=== PATIENT | female | born 2000 | race Caucasian/White ===

== ENCOUNTER 2019-01-25 12:31 | Inpatient (IN) ==
[2019-01-25 14:19] LABS: Bilirubin,Urine Negative (Negative); Blood,Urine Negative (Negative); Clarity,Urine Cloudy (Clear); Color,Urine Yellow (Yellow); Glucose,Urine (UA) Normal (Normal); Ketones,Urine Negative (Negative); Leukocyte Esterase,Urine Large (Negative); Nitrite,Urine Negative (Negative); PH,Urine 5.5 pH Units (5.0-8.0); Protein,Urine Negative (Neg-Trace); Specific Gravity,Urine 1.026 (1.010-1.025); Urobilinogen,Urine Normal (Normal)
[2019-01-25 14:21] LABS: Bacteria,Urine Moderate per hpf (None-Few); Hyaline Casts,Urine None Seen per lpf (None-Few); Squamous Epithelial Cell,Urine Many per lpf (None-Few); WBC,Urine 50-100 per hpf (0-3)
[2019-01-25 14:32] LABS: Basophils % 0.4 %; Eosinophils # 0.2 K/mcL (0.0-0.6); Eosinophils % 2.3 %; Hematocrit 36.4 % (35.3-44.9); Hemoglobin 11.4 g/dL (11.5-15.4); Immature Granulocytes % 0.4 % (0-4); Lymphocytes # 3.9 K/mcL (0.6-4.6); Lymphocytes % 38.8 %; Mean Corpuscular HGB Conc 31.3 g/dL (31.6-35.5); Mean Corpuscular Hemoglobin 24.4 pg (28.0-33.3); Mean Corpuscular Volume 77.9 fL (83.0-100.0); Mean Platelet Volume 9.7 fL (9.4-12.4); Monocytes # 0.6 K/mcL (0.0-1.3); Monocytes % 6.1 %; Neutrophils # 5.3 K/mcL (1.6-8.9); Platelet Count 433 K/mcL (140-400); Red Blood Count 4.67 M/mcL (3.82-4.97); Red Cell Distribution Width 15.5 % (11.5-14.5); White Blood Count 10.1 K/mcL (4.3-11.1)
[2019-01-25 14:49] LABS: Acetaminophen < 10 mcg/mL (10-20); BUN/Creatinine Ratio 10 (6-26); Blood Urea Nitrogen 7 mg/dL (6-20); Calcium 9.1 mg/dL (8.6-10.3); Carbon Dioxide 24 mEq/L (23-29); Chloride 106 mEq/L (98-107); Ethanol < 10 mg/dL (Less than 10); Glucose 80 mg/dL (70-105); Osmolality,Calculated 281 (280-300); Potassium 3.8 mEq/L (3.5-5.1); Salicylate < 2.5 mg/dL (15.0-30.0); Sodium 137 mEq/L (136-145); eGFR For African Americans > 60 (> 60); eGFR For Non-African Americans > 60 (> 60)
[2019-01-25 14:49] LABS: Amphetamine Screen,Urine Negative ng/mL (Cutoff=1000); Barbiturate Screen,Urine Negative ng/mL (Cutoff=200); Benzodiazepines Screen,Urine Negative ng/mL (Cutoff=200); Cannabinoid Screen,Urine Positive ng/mL (Cutoff = 50); Cocaine Screen,Urine Negative ng/mL (Cutoff= 300); Opiate Screen,Urine Negative ng/mL (Cutoff=300); Phencyclidine Screen,Urine Negative ng/mL (Cutoff=25)
--- NOTE | 2019-01-25 16:10 | Emergency Department Note ---
Disposition Clinical Impression: Suicidal ideation Disposition: Admitted As Inpatient Condition: Good Instructions: Depression (ED) Referrals: NONE,PCP [Primary Care Provider] - Forms: ED Satisfaction Letter Time of Disposition: 17:44 General Adult HPI - General Chief complaint: ED Psychiatric Symptoms Stated complaint: SI Time Seen by Provider: 01/25/19 14:02 Source: patient, family Limitations: no limitations - History of Present Illness HPI Narrative: HPI Chief Complaint depression Patient Stated Complaint Patient is a 18-year-old female who comes in with depression and thoughts of hurting self with a history of self-harm contemplating taking pills to hurt self patient is having suicidal thoughts denies any homicidal thoughts or ideation denies any hallucinations of any type and denies any systemic complaints chest pain shortness of breath fevers or chills patient states not taking any meds or alcohol or illegal substances all other symptoms reviewed and are negative Allergy List : Reviewed-and agree with nurses notes Home Medication List : Reviewed-and agree with nurses notes Medical and Surgical History Active Problem List: Reviewed-and agree with nurses notes Family History Reviewed- see -nurses notes Vital Signs and Body Measurements Reviewed- see -nurses notes ROS At Least 10 Organ Systems Reviewed and Negative Except as Indicated in HPI Physical Examination: All findings normal unless otherwise noted Constitutional Alert & orientated x 3, No Acute Distress Well Nourished Head and Face :Normocephalic and Atraumatic Eye Extraocular Movement Intact Pupils Equally Round Reactive to light Ear Nose Throat Mucous Membranes Moist No Injury or Deformity Oropharynx Clear Cardiovascular Capillary Refill Less than 2 Seconds No Peripheral Edema Normal S1, S2 Pulses Normal Regular Rate and Rhythm Respiratory Clear to Auscultation Bilaterally Normal Rate and Effort no Respiratory Distress or Stridor Gastrointestinal Abdomen Soft Bowel Sounds Present Not Tender Distended Generalized Tenderness. No Guarding Rebound Rigid Genitourinary No Lesion Normal External Genitalia Musculoskeletal Distal Pulses Normal No Injury or Deformity No Calf Tendernes, no Paraspinous Tenderness or spinal ttp Cervical Lumbar Thoracic Neurologic 5/5 Strength throughout No Focal Deficits Sensation Intact or Slurred Speech Skin Dry No Lesion No Rash Normal Color Warm no Cyanosis Diaphoretic Lymph No Lymphadenopathy or Lymphadenopathy Lymphedema Psychiatric Appropriate Affect Cooperative not Depressed Manic or having Suicidal Thoughts Laboratory Results-reviewed see results Data Reviewed Medical Decision Making and Diagnosis Medical Decision Making Agency and evaluated labs were reviewed patient had a question distress answered family at bedside psych evaluate for further evaluation and management and disposition after evaluation patient is being admitted for suicidal ideation the psych service Danny Carrasquillo Differential Diagnosis Considered Final Diagnostic Impression #1 depression NOS #2 suicidal ideation Disposition Admit Billing Evaluation and Management Total Critical Care Time minutes Pain Scale: 0 - Related Data Home Medications Medication Instructions Recorded Confirmed No Known Home Drugs 01/25/19 01/25/19 Allergies Allergy/AdvReac Type Severity Reaction Status Date / Time No Known Allergies Allergy Verified 01/25/19 12:33 Past Medical History - Past Medical History Medical history: Reports: non-contributory Surgical history: Reports: other Psychiatric history: Reports: depression D[employer] history: Reports: no D[employer] history - Social History Smoking Status: Never smoker Smokeless Tobacco Status: No Alcohol use: Reports: none Drug use: Reports: marijuana Physical Exam - General Limitations: no limitations General appearance: alert, in no apparent distress Course Vital Signs Temperature 98.2 F 01/25/19 12:34 Pulse Rate 91 01/25/19 12:34 Respiratory Rate 15 01/25/19 12:34 Blood Pressure 142/99 01/25/19 12:34 O2 Sat by Pulse Oximetry 97 01/25/19 12:34 Temperature 98.0 F 01/25/19 16:29 Pulse Rate 74 01/25/19 16:29 Respiratory Rate 16 01/25/19 16:29 Blood Pressure 118/81 01/25/19 16:29 O2 Sat by Pulse Oximetry 96 01/25/19 16:29 Oxygen Delivery Oxygen Delivery Room Air Medical Decision Making - Lab Data Result diagrams: 01/25/19 14:14 01/25/19 14:14 Lab Results 01/25/19 01/25/19 01/25/19 Range/Units 13:23 13:30 14:14 WBC 10.1 (4.3-11.1) K/mcL RBC 4.67 (3.82-4.97) M/mcL Hgb 11.4 L (11.5-15.4) g/dL Hct 36.4 (35.3-44.9) % MCV 77.9 L (83.0-100.0) fL MCH 24.4 L (28.0-33.3) pg MCHC 31.3 L (31.6-35.5) g/dL RDW 15.5 H (11.5-14.5) % Plt Count 433 H (140-400) K/mcL MPV 9.7 (9.4-12.4) fL Immature Gran % 0.4 (0-4) % Seg Neutrophils % 52.0 % Lymphocytes % 38.8 % Monocytes % 6.1 % Eosinophils % 2.3 % Basophils % 0.4 % Neutrophils # 5.3 (1.6-8.9) K/mcL Lymphocytes # 3.9 (0.6-4.6) K/mcL Monocytes # 0.6 (0.0-1.3) K/mcL Eosinophils # 0.2 (0.0-0.6) K/mcL Basophils # 0.0 (0.0-0.2) K/mcL Sodium (136-145) mEq/L Potassium (3.5-5.1) mEq/L Chloride (98-107) mEq/L Carbon Dioxide (23-29) mEq/L BUN (6-20) mg/dL Creatinine (0.60-1.20) mg/dL Est GFR ( Amer) (> 60) Est GFR (Non-Af Amer) (> 60) BUN/Creatinine Ratio (6-26) Glucose (70-105) mg/dL Calculated Osmolality (280-300) Calcium (8.6-10.3) mg/dL Urine Color Yellow (Yellow) Urine Clarity Cloudy A (Clear) Urine pH 5.5 (5.0-8.0) pH Units Ur Specific [place] 1.026 H (1.010-1.025) Urine Protein Negative (Neg-Trace) mg/dL Urine Glucose (UA) Normal (Normal) mg/dL Urine Ketones Negative (Negative) mg/dL Urine Blood Negative (Negative) Urine Nitrite Negative (Negative) Urine Bilirubin Negative (Negative) Urine Urobilinogen Normal (Normal) mg/dL Ur Leukocyte Esterase Large H (Negative) Urine Microscopic RBC 3-5 H (0-3) per hpf Urine Microscopic WBC 50-100 H (0-3) per hpf Ur Squamous Epith Cells Many H (None-Few) per lpf Urine Bacteria Moderate H (None-Few) per hpf Hyaline Casts None Seen (None-Few) per lpf Salicylates (15.0-30.0) mg/dL Urine Opiates Screen Negative (Ymezde=030) ng/mL Ur Buprenorphine Scrn Negative (Cutoff=5) ng/mL Acetaminophen (10-20) mcg/mL Ur Barbiturates Screen Negative (Setzue=542) ng/mL Ur Phencyclidine Scrn Negative (Cutoff=25) ng/mL Ur Amphetamines Screen Negative (Leaudq=6905) ng/mL U Benzodiazepines Scrn Negative (Mkwfzr=110) ng/mL Urine Cocaine Screen Negative (Cutoff= 300) ng/mL U Marijuana (THC) Screen Positive H (Cutoff = 50) ng/mL Ur Drug Screen Interp See Below Ethyl Alcohol (Less than 10) mg/dL 01/25/19 Range/Units 14:14 WBC (4.3-11.1) K/mcL RBC (3.82-4.97) M/mcL Hgb (11.5-15.4) g/dL Hct (35.3-44.9) % MCV (83.0-100.0) fL MCH (28.0-33.3) pg MCHC (31.6-35.5) g/dL RDW (11.5-14.5) % Plt Count (140-400) K/mcL MPV (9.4-12.4) fL Immature Gran % (0-4) % Seg Neutrophils % % Lymphocytes % % Monocytes % % Eosinophils % % Basophils % % Neutrophils # (1.6-8.9) K/mcL Lymphocytes # (0.6-4.6) K/mcL Monocytes # (0.0-1.3) K/mcL Eosinophils # (0.0-0.6) K/mcL Basophils # (0.0-0.2) K/mcL Sodium 137 (136-145) mEq/L Potassium 3.8 (3.5-5.1) mEq/L Chloride 106 (98-107) mEq/L Carbon Dioxide 24 (23-29) mEq/L BUN 7 (6-20) mg/dL Creatinine 0.69 (0.60-1.20) mg/dL Est GFR ( Amer) > 60 (> 60) Est GFR (Non-Af Amer) > 60 (> 60) BUN/Creatinine Ratio 10 (6-26) Glucose 80 (70-105) mg/dL Calculated Osmolality 281 (280-300) Calcium 9.1 (8.6-10.3) mg/dL Urine Color (Yellow) Urine Clarity (Clear) Urine pH (5.0-8.0) pH Units Ur Specific [place] (1.010-1.025) Urine Protein (Neg-Trace) mg/dL Urine Glucose (UA) (Normal) mg/dL Urine Ketones (Negative) mg/dL Urine Blood (Negative) Urine Nitrite (Negative) Urine Bilirubin (Negative) Urine Urobilinogen (Normal) mg/dL Ur Leukocyte Esterase (Negative) Urine Microscopic RBC (0-3) per hpf Urine Microscopic WBC (0-3) per hpf Ur Squamous Epith Cells (None-Few) per lpf Urine Bacteria (None-Few) per hpf Hyaline Casts (None-Few) per lpf Salicylates < 2.5 L (15.0-30.0) mg/dL Urine Opiates Screen (Gyvtgu=209) ng/mL Ur Buprenorphine Scrn (Cutoff=5) ng/mL Acetaminophen < 10 L (10-20) mcg/mL Ur Barbiturates Screen (Fwehet=600) ng/mL Ur Phencyclidine Scrn (Cutoff=25) ng/mL Ur Amphetamines Screen (Jgdlks=0004) ng/mL U Benzodiazepines Scrn (Qqqnjs=481) ng/mL Urine Cocaine Screen (Cutoff= 300) ng/mL U Marijuana (THC) Screen (Cutoff = 50) ng/mL Ur Drug Screen Interp Ethyl Alcohol < 10 (Less than 10) mg/dL
[2019-01-25] MEDS ORDERED: Haloperidol Lactate 5 MG/ML VIAL IM PRN (20:53)
[2019-01-25] MEDS ORDERED: *HR* LORazepam 1 MG TABLET PO PRN (20:53)
[2019-01-25] MEDS ORDERED: *HR* LORazepam 2 MG/ML VIAL IM PRN (20:53)
[2019-01-25] MEDS ORDERED: Mag Hydrox/Al Hydrox/Simeth 30 ML UDC PO PRN (20:53)
[2019-01-25] MEDS ORDERED: MOM Conc 10 ML UD.LIQ PO PRN (20:53)
[2019-01-26] MEDS: Ibuprofen 400 MG TABLET PO PRN ×2 (04:09→21:06)
[2019-01-26] MEDS: hydrOXYzine pamoate 25 MG CAPSULE PO PRN ×2 (09:32→21:06)
--- NOTE | 2019-01-26 13:17 | Psychiatry History & Physical ---
Date of Encounter: 01/27/19 Time of Encounter: 10:00 History of Present Illness Patient Stated Chief Complaint: extreme anxiety always there Medicare Admission Attestation: For traditional Medicare patients the provided hospital inpatient services are reasonable and necessary and in the case of services not specified as inpatient-only under 42 CFR 419.22 (n), that they are appropriately provided as inpatient services in accordance 42 CFR 412.3. For Critical Access Hospital the patient may reasonably be expected to be discharged or transferred to a hospital within 96 hours after admission to the Critical Access Hospital. Admitted From: Emergency Dept Plans for Post Hospital Care: Home History of Present Illness: Ms. Saunders is a 18 year old female who presented to the ER with anxiety and suicide ideation. She was then admitted to [address] inpatient psychiatry unit. She endorses "constant extreme anxiety" for past 2 months, and experiencing anxiety for past year. She has history of being on Buproprion XL 04/19/18, Lexapro 10 mg 06/07/18 and Sertraline 50 mg 11/25/17, this was confirmed with [facility] at [facility] via phone. She reports "feeling worse" while on Bupropion. She endorses suicidal ideation and plan by overdosing on "any medications I can find". No suicide ideation/plan/intent during interview. She denies having access to firearms at your residence and no one in her house hold is on prescription medication that she has access to. [facility] with her boyfriend of 2 years and middle sister. She reports having difficulty getting over the passing of her grandmother last March. 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 Client has no history of psychiatric hospitalization. Past Med Surg Social Fam HX - Past Medical History Source: patient Medical history: non-contributory, other (sarcoidosis) - Past Psychiatric History Psychiatric history: Reports: anxiety, depression Past psychiatric history details: Client reports history of treatment for "anger problems" when she was a child. She describes treatment as "talk therapy". She has a history of trying multiple depression medications including Buproprion XL, Lexapro 10 mg, Sertraline 50 mg. No previous hospitalizations. Family psychiatric history: No Family History of Suicide: None - Past Surgical History Surgical History: no surgical history, non-contributory, other - Social History Smoking Status: Never smoker Smokeless Tobacco Status: No Alcohol use: none Drug use: marijuana Occupational status: employed (Employeed at [employer] residential. Works shift commander partime. ) Current living situation: Home - Independent Activity Level: Independent ambulation Recent Out of Country Travel Within the Last 8 Weeks: No Exposure or Possible Exposure to Illness During Travel: No - Family History Mother Name: GIANLUCA SAUNDERS Age: 42 Living Status: Still Living Hx Family Cardiac Disorders: No Hx Family Respiratory Disorders: Yes (histoplasmosis) Hx Family Cancer: No Hx Family GI Disorders: No Hx Family Genitourinary Disorders: No Hx Family Endocrine Disorder: No Hx Family Musculoskeletal Disorders: No Hx Family Neuromuscular Disorders: No Hx Family Neurologic Disorders: No Hx Family HEENT Disorders: No Hx Family Autoimmune Disorders: No Hx Family Reproductive Disorders: No Hx Family Psychosocial Disorders: No Hx Family Medical Disorders: No Medications & Allergies No Known Home Drugs 01/25/19 [History] Allergy/AdvReac Type Severity Reaction Status Date / Time No Known Allergies Allergy Verified 01/25/19 12:33 Review of Systems Constitutional: Denies: fever, chills, weakness, weight change Eyes: Denies: eye pain, vision change Ears, Nose, Throat: Denies: ear pain, hearing loss Cardiovascular: Denies: chest pain, palpitations, dyspnea on exertion Respiratory: Denies: cough, dyspnea, wheezes Gastrointestinal: Denies: abdominal pain, nausea, vomiting, diarrhea, constipation Genitourinary female: Denies: urgency, dysuria, frequency Musculoskeletal: Denies: back pain, joint pain, myalgia Integumentary: Denies: rash, lesions, pruritus Neurological: Denies: headache, weakness, numbness, confusion Psychiatric: Reports: depression, anxiety, abnormal sleep pattern, suicidal ideation, difficulty concentrating, hopelessness. Denies: change in appetite, homicidal ideation, auditory hallucinations, visual hallucinations, memory loss, irritability, mood swings Endocrine: Denies: fatigue, heat or cold intolerance, polyuria Exam - HEENT Eye exam IM: Present: normal appearance, conjuntiva pink ENT exam IM: Present: normal external ear exam - Neurological Neurological exam: Present: CN II-XII intact, alert, no focal deficits - Respiratory Respiratory exam IM: Absent: respiratory distress, wheezes, tachypnea - Extremities Extremities exam IM: Present: full ROM, normal inspection. Absent: mottling, tenderness, warm - Skin Skin exam IM: Present: normal color. Absent: cyanosis, mottled - Constitutional Vitals: Temp Pulse Resp BP Pulse Ox 97.6 F 73 14 122/80 96 01/26/19 09:00 01/26/19 09:00 01/26/19 09:00 01/26/19 09:00 01/26/19 09:00 General appearance: age & developmentally appropriate, well-groomed - Musculoskeletal Gait: normal Station: relaxed Strength & Tone: normal for patient - Psychiatric Patient Orientation: Yes Person, Yes Time, Yes Place, Yes Circumstance Level of alertness: Alert, Follows commands Behavior: cooperative, anxious, tearful Psychomotor activity: Normal Eye Contact: Maintains Eye Contact Mood Description: Depressed, Anxious Affect description: congruent with mood Speech Volume: Normal Speech pattern: normal rate, normal rhythm, normal tone Language & Vocabulary: consistent with education Thought Process: Intact Thought Content: Yes Intact Perceptual Disturbances: No Reacting to internal stimuli, No Auditory hallucinations, No Visual hallucinations Attention Span Ability: Capable of Focused Attention Memory Description: Grossly Intact Patient Reliability: Reliable Historian Fund of knowledge: Yes abstraction ability Intelligence Estimate: Average Judgment: Good Insight: Full Results - Drug Levels and Toxicology Drug Levels and Toxicology: Drug Levels and Toxicity 01/25/19 01/25/19 13:30 14:14 Urine Opiates Screen Negative Acetaminophen < 10 L Ur Barbiturates Screen Negative Ur Phencyclidine Scrn Negative Ur Amphetamines Screen Negative U Benzodiazepines Scrn Negative Urine Cocaine Screen Negative U Marijuana (THC) Screen Positive H Ethyl Alcohol < 10 - Labs Labs: Laboratory Last Values WBC 10.1 K/mcL (4.3-11.1) 01/25/19 14:14 RBC 4.67 M/mcL (3.82-4.97) 01/25/19 14:14 Hgb 11.4 g/dL (11.5-15.4) L 01/25/19 14:14 Hct 36.4 % (35.3-44.9) 01/25/19 14:14 MCV 77.9 fL (83.0-100.0) L 01/25/19 14:14 MCH 24.4 pg (28.0-33.3) L 01/25/19 14:14 MCHC 31.3 g/dL (31.6-35.5) L 01/25/19 14:14 RDW 15.5 % (11.5-14.5) H 01/25/19 14:14 Plt Count 433 K/mcL (140-400) H 01/25/19 14:14 MPV 9.7 fL (9.4-12.4) 01/25/19 14:14 Immature Gran % 0.4 % (0-4) 01/25/19 14:14 Seg Neutrophils % 52.0 % 01/25/19 14:14 Lymphocytes % 38.8 % 01/25/19 14:14 Monocytes % 6.1 % 01/25/19 14:14 Eosinophils % 2.3 % 01/25/19 14:14 Basophils % 0.4 % 01/25/19 14:14 Neutrophils # 5.3 K/mcL (1.6-8.9) 01/25/19 14:14 Lymphocytes # 3.9 K/mcL (0.6-4.6) 01/25/19 14:14 Monocytes # 0.6 K/mcL (0.0-1.3) 01/25/19 14:14 Eosinophils # 0.2 K/mcL (0.0-0.6) 01/25/19 14:14 Basophils # 0.0 K/mcL (0.0-0.2) 01/25/19 14:14 Sodium 137 mEq/L (136-145) 01/25/19 14:14 Potassium 3.8 mEq/L (3.5-5.1) 01/25/19 14:14 Chloride 106 mEq/L (98-107) 01/25/19 14:14 Carbon Dioxide 24 mEq/L (23-29) 01/25/19 14:14 BUN 7 mg/dL (6-20) 01/25/19 14:14 Creatinine 0.69 mg/dL (0.60-1.20) 01/25/19 14:14 Est GFR ( Amer) > 60 (> 60) 01/25/19 14:14 Est GFR (Non-Af Amer) > 60 (> 60) 01/25/19 14:14 BUN/Creatinine Ratio 10 (6-26) 01/25/19 14:14 Glucose 80 mg/dL (70-105) 01/25/19 14:14 Calculated Osmolality 281 (280-300) 01/25/19 14:14 Calcium 9.1 mg/dL (8.6-10.3) 01/25/19 14:14 Urine Color Yellow (Yellow) 01/25/19 13:23 Urine Clarity Cloudy (Clear) A 01/25/19 13:23 Urine pH 5.5 pH Units (5.0-8.0) 01/25/19 13:23 Ur Specific [place] 1.026 (1.010-1.025) H 01/25/19 13:23 Urine Protein Negative mg/dL (Neg-Trace) 01/25/19 13:23 Urine Glucose (UA) Normal mg/dL (Normal) 01/25/19 13:23 Urine Ketones Negative mg/dL (Negative) 01/25/19 13:23 Urine Blood Negative (Negative) 01/25/19 13:23 Urine Nitrite Negative (Negative) 01/25/19 13:23 Urine Bilirubin Negative (Negative) 01/25/19 13:23 Urine Urobilinogen Normal mg/dL (Normal) 01/25/19 13:23 Ur Leukocyte Esterase Large (Negative) H 01/25/19 13:23 Urine Microscopic RBC 3-5 per hpf (0-3) H 01/25/19 13:23 Urine Microscopic WBC 50-100 per hpf (0-3) H 01/25/19 13:23 Ur Squamous Epith Cells Many per lpf (None-Few) H 01/25/19 13:23 Urine Bacteria Moderate per hpf (None-Few) H 01/25/19 13:23 Hyaline Casts None Seen per lpf (None-Few) 01/25/19 13:23 Salicylates < 2.5 mg/dL (15.0-30.0) L 01/25/19 14:14 Urine Opiates Screen Negative ng/mL (Fnsseb=748) 01/25/19 13:30 Ur Buprenorphine Scrn Negative ng/mL (Cutoff=5) 01/25/19 13:30 Acetaminophen < 10 mcg/mL (10-20) L 01/25/19 14:14 Ur Barbiturates Screen Negative ng/mL (Vccrfa=733) 01/25/19 13:30 Ur Phencyclidine Scrn Negative ng/mL (Cutoff=25) 01/25/19 13:30 Ur Amphetamines Screen Negative ng/mL (Ggzczh=6846) 01/25/19 13:30 U Benzodiazepines Scrn Negative ng/mL (Roqxfa=233) 01/25/19 13:30 Urine Cocaine Screen Negative ng/mL (Cutoff= 300) 01/25/19 13:30 U Marijuana (THC) Screen Positive ng/mL (Cutoff = 50) H 01/25/19 13:30 Ur Drug Screen Interp See Below 01/25/19 13:30 Ethyl Alcohol < 10 mg/dL (Less than 10) 01/25/19 14:14 Assessment and Plan (1) Adjustment disorder with mixed anxiety and depressed mood Current visit: Yes Status: Acute Plan: Admit inpatient for safety and stabilization, Close observation, Suicide Precautions per unit protocol, Encourage participation in unit milieu, Group Therapy Additional Plan: Went over past medications with client. Discussed going back on Sertraline 50 mg PO daily. Side effects and contraindications discussed with client. Client agreed to try Sertraline and use Vistaril PRN for anxiety. Risks, benefits, side effects, alternatives discussed w/pt: Yes Patient agreeable to treatment: Yes Plans for Post Hospital Care: at Home Estimated Length of Stay (Days): 3 - Attending Attestation I examined this patient and my medical decision-making was reviewed with the Resident Physician. I agree with the documented findings, disposition and treatment plan as described except to the extent set forth below. Agree with mental status, assessment, and plan. Encourage groups, therapist to work on linkage.
[2019-01-26 17:46] LABS: Estimated Average Glucose 120 mg/dl
[2019-01-26 20:17] LABS: Chol/HDL Ratio 3.8 (0-4.9); Cholesterol 136 mg/dL (< 200); HDL Cholesterol 36 mg/dL (40-59); LDL Cholesterol,Calculated 81 mg/dL (0-99); Triglycerides 97 mg/dL (< 150)
[2019-01-26] MEDS: cephALEXin 500 MG CAPSULE PO SCH (21:06)
[2019-01-26] MEDS: traZODone 50 MG TABLET PO PRN (21:06)
[2019-01-27] MEDS: cephALEXin 500 MG CAPSULE PO SCH ×2 (08:53→21:07)
--- NOTE | 2019-01-27 13:23 | Psychiatry Progress Note ---
Date of Encounter: 01/27/19 Time of Encounter: 10:15 Subjective Interval history: Client seen in [facility] area. She described feeling "ashamed" about experiencing depressed mood rated at 7/10 and high anxiety rated at 8/10 during interview. Anxiety is worse when she is "sitting down" or "not performing a task". She is crying and affect is congruent with mood. She discussed the visit with her sister and mother yesterday stating, "mom was all about her self" and "sister was sad I am here". She reports father will "yell at me for being here". She also states her relationship with current boyfriend of 2 years will end when she is discharged from unit. "he is not capable of dealing with my emotions". She denies any suicidal ideation/plan/intent. Review of Systems Constitutional: Denies: fever, chills, weakness Ears, Nose, Throat: Denies: ear pain, throat pain, dental pain, congestion, dysphagia Cardiovascular: Denies: chest pain, palpitations, dyspnea on exertion, edema, syncope Respiratory: Denies: cough, dyspnea Gastrointestinal: Denies: abdominal pain, nausea, diarrhea, constipation Genitourinary female: Denies: urgency, dysuria, frequency, hematuria Musculoskeletal: Denies: myalgia Integumentary: Denies: rash, pruritus Neurological: Denies: headache, weakness, numbness, memory loss, abnormal gait, vertigo Psychiatric: Reports: depression, anxiety, abnormal sleep pattern, difficulty concentrating, hopelessness. Denies: suicidal ideation, change in appetite, homicidal ideation, auditory hallucinations, visual hallucinations, memory loss, irritability, mood swings Results - Vital Signs Vital Signs: Temp Pulse Resp BP Pulse Ox 97.6 F 88 16 114/84 96 01/27/19 09:00 01/27/19 09:00 01/27/19 09:00 01/27/19 09:00 01/27/19 09:00 - Drug Levels and Toxicology Drug Levels and Toxicology: Drug Levels and Toxicity 01/25/19 14:14 Acetaminophen < 10 L Ethyl Alcohol < 10 - Labs Labs: Laboratory Results - last 24 hr 01/25/19 01/25/19 01/25/19 14:14 14:14 14:14 WBC 10.1 RBC 4.67 Hgb 11.4 L Hct 36.4 MCV 77.9 L MCH 24.4 L MCHC 31.3 L RDW 15.5 H Plt Count 433 H MPV 9.7 Immature Gran % 0.4 Seg Neutrophils % 52.0 Lymphocytes % 38.8 Monocytes % 6.1 Eosinophils % 2.3 Basophils % 0.4 Neutrophils # 5.3 Lymphocytes # 3.9 Monocytes # 0.6 Eosinophils # 0.2 Basophils # 0.0 Sodium 137 Potassium 3.8 Chloride 106 Carbon Dioxide 24 BUN 7 Creatinine 0.69 Est GFR ( Amer) > 60 Est GFR (Non-Af Amer) > 60 BUN/Creatinine Ratio 10 Glucose 80 Est Mean Plasma Glucose 120 Hemoglobin A1c 5.8 H Calculated Osmolality 281 Calcium 9.1 Triglycerides 97 Cholesterol 136 LDL Cholesterol, Calc 81 VLDL Cholesterol, Calc 19 HDL Cholesterol 36 L Cholesterol/HDL Ratio 3.8 Free T4 0.95 Salicylates < 2.5 L Acetaminophen < 10 L Ethyl Alcohol < 10 Assessment and Plan (1) Adjustment disorder with mixed anxiety and depressed mood Current visit: Yes Status: Acute Plan: Continue hospitalization, Close observation, Suicide Precautions per unit protocol, Encourage participation in unit milieu, Group Therapy, Monitor sleep, Secure weapons, Family/Supportive other meeting Additional Plan: Cllient reports "anxiety and depression is still the same since admission". Discussed adjustment to medication regimen. Client agreed to try trial of Buspar 15 mg BID for anxiety. Risks, benefits, side effects, alternatives discussed w/pt: Yes Patient agreeable to treatment: Yes Consult Discharge Plan - Plan Referrals: NONE,PCP [Primary Care Provider] - - Attending Attestation I examined this patient and my medical decision-making was reviewed with the Resident Physician. I agree with the documented findings, disposition and treatment plan as described except to the extent set forth below. Agree with mental status, assessment, and plan. Continue medications, encourage group therapy, therapist to work on discharge planning. Psychiatry Exam - Constitutional Vitals: Temp Pulse Resp BP Pulse Ox 97.6 F 88 16 114/84 96 01/27/19 09:00 01/27/19 09:00 01/27/19 09:00 01/27/19 09:00 01/27/19 09:00 General appearance: age & developmentally appropriate, well-groomed, well- nourished, obese - Musculoskeletal Gait: normal Station: relaxed Strength & Tone: normal for patient - Psychiatric Patient Orientation: Yes Person, Yes Time, Yes Place, Yes Circumstance Level of alertness: Alert Psychomotor activity: Normal Eye Contact: Minimal Contact Mood Description: Depressed, Anxious Affect description: congruent with mood Speech Volume: Normal Speech pattern: normal rate, normal rhythm, normal tone, fluent, appropriate Language & Vocabulary: consistent with education Thought Process: Intact, Logical, Linear, Goal Oriented Thought Content: Yes Intact, No Suicidal ideation, No Homicidal ideation Perceptual Disturbances: No Reacting to internal stimuli Attention Span Ability: Capable of Focused Attention, Capable of Sustained Attention Memory Description: Grossly Intact, Immediate Intact, Recent Intact, Remote Intact Patient Reliability: Reliable Historian Fund of knowledge: Yes abstraction ability Intelligence Estimate: Average Judgment: Fair Insight: Full
[2019-01-27] MEDS: Ibuprofen 400 MG TABLET PO PRN (16:15)
[2019-01-27] MEDS: hydrOXYzine pamoate 25 MG CAPSULE PO PRN ×2 (17:10→21:07)
[2019-01-27] MEDS: traZODone 50 MG TABLET PO PRN (21:07)
[2019-01-28] MEDS: cephALEXin 500 MG CAPSULE PO SCH ×2 (08:34→21:15)
--- NOTE | 2019-01-28 11:48 | Psychiatry Progress Note ---
Date of Encounter: 01/28/19 Time of Encounter: 10:40 Subjective Interval history: Patient did not get the BuSpar yesterday or this morning as it had been put in as a when necessary medication. That was corrected. She says she still continues to feel sad with decreased interest and suicidal ideations. She feels embarrassed about her depression and is upset because her father now know she was in the hospital and she is worried that he is going to yell at her when she gets out. It sleep last night. She attended some groups yesterday. Review of Systems Psychiatric: Reports: depression, anxiety, abnormal sleep pattern, suicidal ideation, difficulty concentrating, hopelessness. Denies: change in appetite, homicidal ideation, auditory hallucinations, visual hallucinations, memory loss, irritability, mood swings Results - Vital Signs Vital Signs: Temp Pulse Resp BP Pulse Ox 98.2 F 80 16 111/79 97 01/28/19 08:35 01/28/19 08:35 01/28/19 08:35 01/28/19 08:35 01/28/19 08:35 Assessment and Plan (1) Depressed Current visit: Yes Status: Acute Plan: Continue hospitalization, Close observation, Suicide Precautions per unit protocol, Encourage participation in unit milieu, Group Therapy, Monitor sleep, Monitor appetite Additional Plan: We will start BuSpar 15 mg by mouth twice a day for anxiety. Continue the Zoloft. May consider increasing it if she continues to be acutely depressed. Encourage group attendance. Therapist to work on discharge planning. Risks, benefits, side effects, alternatives discussed w/pt: Yes Patient agreeable to treatment: Yes Qualifiers: Depression Type: major depressive disorder Major depression recurrence: recurrent Active/Remission status: currently active Major depression episode severity: severe Psychotic features: without psychotic features Qualified Code(s): F33.2 - Major depressive disorder, recurrent severe without psychotic features Consult Discharge Plan - Plan Referrals: NONE,PCP [Primary Care Provider] - Psychiatry Exam - Constitutional Vitals: Temp Pulse Resp BP Pulse Ox 98.2 F 80 16 111/79 97 01/28/19 08:35 01/28/19 08:35 01/28/19 08:35 01/28/19 08:35 01/28/19 08:35 General appearance: age & developmentally appropriate - Musculoskeletal Gait: slow Station: stooped Strength & Tone: normal for patient - Psychiatric Patient Orientation: Yes Person, Yes Time, Yes Place, Yes Circumstance Level of alertness: Alert Behavior: tearful Psychomotor activity: Slowed Eye Contact: Minimal Contact Mood Description: Depressed Patient description of mood: Affect description: tearful Speech Volume: Soft/Quiet Speech pattern: slowed Language & Vocabulary: consistent with education Thought Process: Linear, Goal Oriented Thought Content: Yes Suicidal ideation, No Homicidal ideation Perceptual Disturbances: No Auditory hallucinations, No Visual hallucinations Attention Span Ability: Capable of Focused Attention Memory Description: Grossly Intact Patient Reliability: Reliable Historian Fund of knowledge: Yes abstraction ability, Yes aware of current events Intelligence Estimate: Average Judgment: Limited Insight: Full
[2019-01-29] MEDS: cephALEXin 500 MG CAPSULE PO SCH (09:12)
--- NOTE | 2019-01-29 09:52 | Discharge Summary ---
Date of Encounter: 01/29/19 Time of Encounter: 08:00 Diagnosis - Discharge Diagnosis (1) Depressed Status: Acute Qualifiers: Depression Type: major depressive disorder Major depression recurrence: re current Active/Remission status: currently active Major depression episode severity: severe Psychotic features: without psychotic features Qualified Code(s): F33.2 - Major depressive disorder, recurrent severe without psychotic features Medications - Discharge Medications Prescriptions: cephALEXin [Keflex] 500 mg PO BID #5 capsule traZODone [TraZODone] 50 mg PO HS PRN #15 tablet PRN Reason: Insomnia hydrOXYzine pamoate [Vistaril] 25 mg PO TID PRN #45 capsule PRN Reason: Anxiety Sertraline [Zoloft] 50 mg PO DAILY #15 tablet Sertraline [Zoloft] 50 mg PO DAILY #15 tablet 01/29/19 [Rx] cephALEXin [Keflex] 500 mg PO BID #5 capsule 01/29/19 [Rx] hydrOXYzine pamoate [Vistaril] 25 mg PO TID PRN #45 capsule 01/29/19 [Rx] traZODone [TraZODone] 50 mg PO HS PRN #15 tablet 01/29/19 [Rx] Allergy/AdvReac Type Severity Reaction Status Date / Time No Known Allergies Allergy Verified 01/25/19 12:33 Results Procedures and tests throughout hospitalization: Completed Lab Orders Category Date Time Status Acetaminophen Stat Lab 01/25/19 14:14 Completed Basic Metabolic Panel Stat Lab 01/25/19 14:14 Completed Complete Blood Count [HEME] Stat Lab 01/25/19 14:14 Completed Drug Screen, Urine [UCHEM] Stat Lab 01/25/19 13:30 Completed Ethanol Stat Lab 01/25/19 14:14 Completed Hgb A1C Routine Lab 01/26/19 16:29 Completed Lipid Panel Stat Lab 01/25/19 14:14 Completed Salicylate Stat Lab 01/25/19 14:14 Completed Thyroxine (T4) Free Stat Lab 01/25/19 14:14 Completed Urinalysis reflex Microscopic [URIN] Stat Lab 01/25/19 13:23 Completed Provider Date of admission: 01/25/19 17:53 Primary care physician: PCP NONE Discharging clinician: Ana Carrasquillo Psychiatry Exam - Constitutional Vitals: Temp Pulse Resp BP Pulse Ox 98.1 F 80 18 107/69 98 01/28/19 20:40 01/28/19 20:40 01/28/19 20:40 01/28/19 20:40 01/28/19 20:40 General appearance: age & developmentally appropriate, well-groomed, well- nourished - Musculoskeletal Gait: normal Station: relaxed Strength & Tone: normal for patient - Psychiatric Patient Orientation: Yes Person, Yes Time, Yes Place, Yes Circumstance Level of alertness: Alert Behavior: calm, cooperative Psychomotor activity: Normal Eye Contact: Maintains Eye Contact Mood Description: Euthymic/stable Patient description of mood: good Affect description: congruent with mood, full range Speech Volume: Normal Speech pattern: normal rate, normal rhythm, normal tone, fluent, spontaneous Language & Vocabulary: consistent with education Thought Process: Linear, Goal Oriented Thought Content: No Suicidal ideation, No Homicidal ideation, No Overt delusions Perceptual Disturbances: No Auditory hallucinations, No Visual hallucinations Attention Span Ability: Capable of Focused Attention Memory Description: Grossly Intact Patient Reliability: Reliable Historian Fund of knowledge: Yes abstraction ability, Yes aware of current events Intelligence Estimate: Average Judgment: Good Insight: Full Hospital Course Hospital course: Ms. Pennington is a 18 year old female who was admitted for depression and suicidality related to work stress and the of her grandmother. While she was in the hospital she broke up with her boyfriend. She was started on Cymbalta.Patient was educated of diagnosis and the risk-benefit side effects of this alternative treatment options and was monitored for responsiveness and side effects. Mood anxiety sleep and appetite interest improved as did future orientation. Self-harm thoughts subsided, thinking cleared, psychosis resolved, and mood stabilized. Patient was able to attend both individual and group therapy sessions as well as meet with the psychiatrist daily and urged to discuss any medication or treatment issues or other concerns. The patient was educated primarily by verbal means about their diagnosis and manifestations in their life. The option for treatment including group and individual therapy programming was offered to the patient in addition to the use of medications with all their potential risks, benefits, and side effects as well as the risks of not taking medication and non-adhereance were discussed with the patient at length. The patient was given the opportunity to ask questions and was noted to participate in the treatment in the planning process. The patient felt ready and eager to be discharged from the inpatient psychiatric unit to continue on with treatment as an outpatient. The patient agreed that is they were safe for this disposition. The patient was considered to be able to participate in informed consent and decision making with respect to medical, legal, and financial issues of the time of discharge. At the time of discharge the patient adamantly denied any concerns for lethality including suicidal or homicidal thoughts ideations or plans and was future oriented toward ongoing mental health care, medical follow-up and sobriety. Time spent discussing smoking cessation with patient: 3 to 10 minutes Does patient wish to continue nicotine replacement upon disc: No (n/a) - Time Spent with Patient Total time spent providing and/or coordinating discharge services: 25 Less than 30 minutes Specific discharge activities: Interval history reviewed. Available labs reviewed . Psychotherapy provided. Patient had an opportunity to ask questions and address concerns. Patient was in agreement with the treatment plan. The risks benefits and side effects of medications were discussed with the patient, including alternatives and treatment. The patient was educated on the abstaining from any alcohol or illicit substances, following up with all scheduled appointments, and taking all medications as prescribed. Assessment and Plan - Patient/Caregiver Discharge Instructions Activity: resume usual activities as tolerated Diet: regular diet Additional Instructions: Continue current medications. Follow up with outpatient mental health. Encourage continued therapy in a group or individual setting. The patient was discharged to home. - Follow up Plan Follow up with: NONE,PCP [Primary Care Provider] - Functional capacity at discharge: independent ambulation Overall status at discharge: Stable Disposition: Home, Self-Care Quality - Multiple Antipsychotics Patient discharged on 2 or more antipsychotic medications: No Procedures - Procedures Procedures: Medication Management, Crisis Stabilization, Supportive Therapy, Group Therapy, Psychoeducational Therapy
[2019-01-29 12:59] VITALS: BP 105/76
== END 2019-01-29 12:35 | disposition home or self-care (01) | DRG 751 ==
LOC: EMEROOARM 12:31 → 1ANU 17:53
PROVIDERS: ADMIT Psychiatry & Neurology Psychiatry; ATTEND Psychiatry & Neurology Psychiatry